=== PATIENT | male | born 1950 | race Caucasian/White ===

== ENCOUNTER 2017-12-03 14:02 | Emergency (ER) | payer OTHER ==
[~2017-12-03] VITALS: Ht 188 cm; Wt 110.0 kg
[~2017-12-03 14:02] MED LIST: ACETAMINOPHEN325 M1 PO; ASPIR 8181 M1 PO; GLUCOPHAGE500 MG PO; MIRALAX17 GM PO; NIASPAN,SLO-N1000 MG PO; NORCO 5/3251 TABLET PO; ZESTRIL10 MG PO; ZOCOR10 MG PO; [UNRECOGNIZED DRUG - OTHER] PO
[2017-12-03] MEDS ORDERED: RELAFEN750 MG PO (15:20)
[2017-12-03] MEDS ORDERED: TIZANIDINE HCL4 MG PO (15:21)
[2017-12-03 16:46] LABS: APPEARANCE CLEAR ((CLEAR)); BILIRUBIN NEGATIVE; BLOOD NEGATIVE; COLOR YELLOW ((YELLOW)); GLUCOSE (STRIP) 50; KETONES NEGATIVE; LEUKOCYTES NEGATIVE; NITRITE NEGATIVE; PROTEIN (STRIP) NEGATIVE; SPECIFIC GRAVITY 1.029 (1.000-1.030); UCUL ADDED? NO; UROBILINOGEN 0.2 MG/DL (0.2-1.0)
[2017-12-03] MEDS ORDERED: NORCO 5/3251 TABLET PO (17:40)
[2017-12-03 17:57] VITALS: BP 154/89
== END 2017-12-03 17:57 | disposition home or self-care (01) ==
LOC: EME 14:02
PROVIDERS: Physician Assistant
DX: M54.5 Low back pain (principal); I10 Essential (primary) hypertension; E78.5 Hyperlipidemia, unspecified; E11.9 Type 2 diabetes mellitus without complications; G89.29 Other chronic pain; Z79.84 Long term (current) use of oral hypoglycemic drugs; Z79.82 Long term (current) use of aspirin; Z95.828 Presence of other vascular implants and grafts
CPT/HCPCS: 72100; 81003; 99281; 99284